=== PATIENT | male | born 1970 | race Caucasian/White ===

== ENCOUNTER 2021-07-10 14:20 | Inpatient (IN) | payer OTHER ==
[~2021-07-10] VITALS: Ht 185.4 cm; Wt 106.8 kg
[2021-07-10] MEDS ORDERED: IV NORMAL SALINE 1,000ML 1,000 ML IV ONE (15:00)
--- NOTE | 2021-07-10 15:06 | PHYS DOC ---
General Adult EDM: Chief Complaint: COUGH HPI: HPI: Patient is a 51-year-old Covid positive male being seen in the ER for cough, nausea/vomiting, fevers that started over the last 4 days. Patient was diagnosed with Covid 10 days ago. He has been taking codeine cough syrup without any improvement in his symptoms. He states that he is tolerating fluids. He states 2 days prior he did have some hemoptysis. He has no medical history. He is tachycardic and borderline hypoxic with O2 saturation of 91% at rest. Patient denies any diarrhea, chest pain. Review of Systems: Review of Systems: 14 body systems of the review of systems have been reviewed. See HPI for pertinent positive and negative responses, otherwise all other systems are negative, nonpertinent or noncontributory Current Medications: Current Meds: Current Medications Medications (Trade) Dose Ordered Sig/Vincent Start Time Stop Time Status Last Admin Dose Admin Dexamethasone Sodium Phosphate (Decadron) 10 mg 1X ONCE 07/10/21 15:30 07/10/21 15:31 Sodium Chloride 1,000 ml @ 1,000 mls/hr 1X ONCE 07/10/21 15:00 07/10/21 15:59 Allergies: Allergies: Allergies Coded Allergies Type Severity Reaction Last Updated Verified No Known Drug Allergies 07/10/21 No Physical Exam: PE: Constitutional: Well developed, well nourished, no acute distress, non-toxic appearance. [] HENT: Normocephalic, atraumatic, bilateral external ears normal, oropharynx moist, no oral exudates, nose normal. [] Eyes: PERRL, EOMI, conjunctiva normal, no discharge. [] Neck: Normal range of motion, no tenderness, supple, no stridor. [] Cardiovascular:Heart rate tachycardic rhythm, no murmur [] Lungs & Thorax: Bilateral breath sounds clear and diminished to auscultation, tachypnea, hypoxia [] Abdomen: Bowel sounds normal, soft, no tenderness, no masses, no pulsatile masses. [] Skin: Warm, dry, no erythema, no rash. [] Back: Normal range of motion Extremities: No tenderness, no cyanosis, no clubbing, ROM intact, no edema. [] Neurologic: Alert and oriented X 3, normal motor function, normal sensory function, no focal deficits noted. [] Psychologic: Affect normal, judgement normal, mood normal. [] Current Patient Data: Labs: Laboratory Tests Test 07/10/21 15:10 White Blood Count 6.2 x10^3/uL Red Blood Count 4.98 x10^6/uL Hemoglobin 15.5 g/dL Hematocrit 45.2 % Mean Corpuscular Volume 91 fL Mean Corpuscular Hemoglobin 31 pg Mean Corpuscular Hemoglobin Concent 34 g/dL Red Cell Distribution Width 14.1 % Platelet Count 158 x10^3/uL Neutrophils (%) (Auto) 85 % Lymphocytes (%) (Auto) 8 % Monocytes (%) (Auto) 7 % Eosinophils (%) (Auto) 0 % Basophils (%) (Auto) 0 % Neutrophils # (Auto) 5.2 x10^3uL Lymphocytes # (Auto) 0.5 x10^3/uL Monocytes # (Auto) 0.4 x10^3/uL Eosinophils # (Auto) 0.0 x10^3/uL Basophils # (Auto) 0.0 x10^3/uL Sodium Level 134 mmol/L Potassium Level 4.2 mmol/L Chloride Level 98 mmol/L Carbon Dioxide Level 26 mmol/L Anion Gap 10 Blood Urea Nitrogen 13 mg/dL Creatinine 1.1 mg/dL Estimated GFR (Cockcroft-Gault) 70.6 BUN/Creatinine Ratio 12 Glucose Level 121 mg/dL Calcium Level 8.1 mg/dL Total Bilirubin 0.4 mg/dL Aspartate Amino Transf (AST/SGOT) 187 U/L Alanine Aminotransferase (ALT/SGPT) 127 U/L Alkaline Phosphatase 75 U/L Troponin I Quantitative < 0.017 ng/mL Total Protein 6.6 g/dL Albumin 3.2 g/dL Albumin/Globulin Ratio 0.9 Current Medications Medications (Trade) Dose Ordered Sig/Vincent Route PRN Reason Start Time Stop Time Status Last Admin Dose Admin Sodium Chloride 1,000 ml @ 1,000 mls/hr 1X ONCE IV 07/10/21 15:00 07/10/21 15:59 DC 07/10/21 15:24 Dexamethasone Sodium Phosphate (Decadron) 10 mg 1X ONCE IVP 07/10/21 15:30 07/10/21 15:31 DC 07/10/21 15:24 Iohexol (Omnipaque 350 Mg/ml) 100 ml 1X ONCE IV 07/10/21 15:15 07/10/21 15:16 DC 07/10/21 15:17 Info (Do NOT chart on this entry -- for MONITORING) 1 each PRN DAILY PRN MC SEE COMMENTS 07/10/21 15:15 07/12/21 15:14 Ceftriaxone Sodium 1 gm/ Sodium Chloride 50 ml @ 100 mls/hr 1X ONCE IV 07/10/21 16:30 07/10/21 16:59 Azithromycin 500 mg/Sodium Chloride 250 ml @ 250 mls/hr 1X ONCE IV 07/10/21 16:30 07/10/21 17:29 EKG: EKG: EKG performed by ER staff at 1526 shows sinus rhythm with a right bundle branch block, no STEMI read by Dr. Claros at 1533 [] Radiology/Procedures: Radiology/Procedures: PROCEDURE: CT ANGIOGRAPHY CHEST Site ID: [id number] EXAMINATION: CTA chest. Technique: Axial images with coronal and sagittal reconstructions with MIP technique are performed of chest with angiogram protocol. 100mls omni 350 administered intravenously. One or more of the following radiation dose reduction techniques was used: automated exposure control, adjustment of mA and/or KV according to patient size, and/or utilization of iterative reconstruction technique. HISTORY: 51 years Male tachycardia, soa, covid COMPARISON: Correlation with chest x-ray from November 03, 2020. FINDINGS: There is good opacification of the pulmonary arteries with no filling defects to suggest pulmonary embolism. Mild the breathing motion artifacts could obscure a subtle abnormality. There is patchy but relatively extensive groundglass the opacities in the lungs worse in the upper and midlung segments compatible with atypical infection, presumably Covid pneumonia based on the history. The heart is a not enlarged. No pericardial or pleural effusion. There is no mediastinal mass or significant lymphadenopathy. No hilar or axillary lymphadenopathy. Sections in the upper abdomen demonstrate evidence of the hepatic steatosis. The osseous structures demonstrate mild degenerative osteophytes in the midthoracic spine. IMPRESSION: 1. No PE or dissection. 2. Extensive groundglass opacities in the lungs compatible with atypical infection, presumably Covid pneumonia based on the history. 3. Hepatic steatosis. Electronically signed by: Consuelo Catherine MD (07/10/2021 3:41 PM) [id number] DICTATED AND SIGNED BY: CONSUELO CATHERINE MD DATE: 07/10/21 1535 CC: NIKIA QUINTANILLA; NIMISHA RIVERA INDEPENDENT SALES REPRESENTATIVE ~MTH0 0[] Heart Score: C/O Chest Pain: No Risk Factors: Risk Factors: DM, Current or recent (<one month) smoker, HTN, HLP, family history of CAD, obesity. Risk Scores: Score 0 - 3: 2.5% MACE over next 6 weeks - Discharge Home Score 4 - 6: 20.3% MACE over next 6 weeks - Admit for Clinical Observation Score 7 - 10: 72.7% MACE over next 6 weeks - Early Invasive Strategies Course & Med Decision Making: Course & Med Decision Making Pertinent Labs and Imaging studies reviewed. (See chart for details) [] Patient is a 51-year-old male being seen in the ER for shortness of breath, nausea/vomiting, fevers that started 4 days ago. Patient was diagnosed with COVID-19 10 days ago. Work-up in the ER consisted of blood work, CT angio to rule out pulmonary embolism due to tachycardia, hemoptysis and borderline hypoxia. Patient treated with IV fluids and steroid. Patient CT scan showed extensive groundglass opacities. He was treated with IV antibiotics. Patient is requiring oxygen at this time. His O2 saturation is 87% on room air. CBC unremarkable. Patient was noted to have elevated liver enzymes consistent with a COVID-19 infection. I discussed patient's case with Dr. Jones who agreed to admit the patient to this facility under his services for COVID-19 pneumonia. I discussed this with patient he is agreeable to plan of care and admission. Care transferred at this time 1637. Lena Disclaimer: Lena Disclaimer: This electronic medical record was generated, in whole or in part, using a voice recognition dictation system. Departure Departure: Impression: Primary Impression: Pneumonia due to COVID-19 virus Additional Impression: Hypoxia Disposition: ADMITTED INPATIENT Admitting Physician: Vladimir Jones Condition: STABLE Referrals: NIKIA QUINTANILLA (PCP) NIMISHA RIVERA APRN Jul 10, 2021 15:06
[2021-07-10] MEDS ORDERED: CONTRAST GIVEN. MC PRN (15:15)
[2021-07-10] MEDS ORDERED: IOHEXOL 350 MG/ML 100 ML VIAL. IV ONE (15:15)
[2021-07-10] MEDS ORDERED: DEXAMETHASONE SOD PHOS 10 MG/ML VIAL. IVP ONE (15:30)
--- NOTE | 2021-07-10 15:33 | EKG ---
[address] [address] Test Date: 2021-07-10 Test Time: 15:26:56 Pat Name: KEYSHA BIGGS Department: Room: Gender: M Nail Kegger: : 1970 Requested By: NIMISHA RIVERA Order Number: [id number] Reading MD: Measurements Intervals Imperial Rate: 110 P: 96 CT: 190 QRS: -59 QRSD: 140 T: -1 QT: 330 QTc: 452 Interpretive Statements SINUS TACHYCARDIA ABNORMAL LEFT AXIS DEVIATION LEFT ANTERIOR FASCICULAR BLOCK RIGHT BUNDLE BRANCH BLOCK BIFASCICULAR BLOCK ABNORMAL ECG RI6.02 No previous ECG available for comparison
[2021-07-10 15:38] LABS: BASO % 0 % (0-3); EOS % 0 % (0-3); HEMATOCRIT 45.2 % (39.0-53.0); HEMOGLOBIN 15.5 g/dL (13.0-17.5); LYMPH # 0.5 x10^3/uL (1.0-4.8); LYMPH % 8 % (24-48); MEAN CORPUSCULAR HEMOGLOBIN 31 pg (25-35); MEAN CORPUSCULAR HGB CONC 34 g/dL (31-37); MEAN CORPUSCULAR VOLUME 91 fL (79-100); MONO # 0.4 x10^3/uL (0.0-1.1); MONO % 7 % (0-9); NEUT # 5.2 x10^3uL (1.8-7.7); NEUT % 85 % (31-73); PLATELET COUNT 158 x10^3/uL (140-400); RED BLOOD COUNT 4.98 x10^6/uL (4.30-5.70); RED CELL DISTRIBUTION WIDTH 14.1 % (11.5-14.5); WHITE BLOOD COUNT 6.2 x10^3/uL (4.0-11.0)
--- NOTE | 2021-07-10 15:43 | RAD ---
Site ID: [id number] EXAMINATION: CTA chest. Technique: Axial images with coronal and sagittal reconstructions with MIP technique are performed of chest with angiogram protocol. 100mls omni 350 administered intravenously. One or more of the following radiation dose reduction techniques was used: automated exposure control , adjustment of mA and/or KV according to patient size, and/or utilization of iterative reconstructio n technique. HISTORY: 51 years Male tachycardia, soa, covid COMPARISON: Correlation with chest x-ray from November 03, 2020. FINDINGS: There is good opacification of the pulmonary arteries with no filling defects to suggest pulmonary em bolism. Mild the breathing motion artifacts could obscure a subtle abnormality. There is patchy but r elatively extensive groundglass the opacities in the lungs worse in the upper and midlung segments co mpatible with atypical infection, presumably Covid pneumonia based on the history. The heart is a not enlarged. No pericardial or pleural effusion. There is no mediastinal mass or significant lymphadenopathy. No hilar or axillary lymphadenopathy. Se ctions in the upper abdomen demonstrate evidence of the hepatic steatosis. The osseous structures demonstrate mild degenerative osteophytes in the midthoracic spine. IMPRESSION: 1. No PE or dissection. 2. Extensive groundglass opacities in the lungs compatible with atypical infection, presumably Covid pneumonia based on the history. 3. Hepatic steatosis. Electronically signed by: Michael Catherine MD (07/10/2021 3:41 PM) [id number]
[2021-07-10 15:45] LABS: CALCIUM 8.1 mg/dL (8.5-10.1); CREATININE 1.1 mg/dL (0.7-1.3); GFR 70.6; POTASSIUM 4.2 mmol/L (3.5-5.1)
[2021-07-10 15:51] LABS: ALBUMIN 3.2 g/dL (3.4-5.0); ALBUMIN/GLOBULIN RATIO 0.9 (1.0-1.7); TOTAL BILIRUBIN 0.4 mg/dL (0.2-1.0); TOTAL PROTEIN 6.6 g/dL (6.4-8.2)
[2021-07-10] MEDS ORDERED: AZITHROMYCIN 500 MG in IV NORMAL SALINE 250ML 250 ML IV ONE (16:30)
[2021-07-10] MEDS ORDERED: AZITHROMYCIN 500 MG VIAL. IV ONE (16:35)
[2021-07-10] MEDS ORDERED: IV NORMAL SALINE 50ML 50 ML ONE ×2 (16:35→16:36)
[2021-07-10] MEDS ORDERED: cefTRIAXone SODIUM 1 GM VIAL ONE (16:35)
[2021-07-10] MEDS ORDERED: ONDANSETRON PF 4 MG/2 ML VIAL. ONE (16:35)
[2021-07-10] MEDS ORDERED: IV NORMAL SALINE 250ML 250 ML ONE (16:35)
[2021-07-10] MEDS ORDERED: ONDANSETRON PF 4 MG/2 ML VIAL. IVP ONE (17:00)
--- NOTE | 2021-07-10 21:30 | NUR ---
The patient, KEYSHA BIGGS, 51 y/o, M admitted by MARIXA PONCE MD, was given written information regarding hospital policies, unit procedures and contact persons. Pt is being admitted for Covid Pnuemonia. Valuables were checked and vitals obtained. Pt is A&OX4 on 3LNC which he does not use at home. He is able to express own concerns. Pt ambulates on own to toilet. Pt is currently resting in bed watching tv. Will continue to monitor.
[2021-07-10 21:45] VITALS: BP 152/87
[2021-07-10] MEDS ORDERED: ACETAMINOPHEN/CODEINE 300/30MG TABLET PO SCH (23:00)
[2021-07-10] MEDS ORDERED: REMDESIVIR LOAD in IV NORMAL SALINE 250ML TV IV ONE (23:00)
[2021-07-10] MEDS ORDERED: ENOXAPARIN 40 MG/0.4 ML SYRINGE. SQ ONE (23:00)
[2021-07-11 06:02] VITALS: BP 133/82
[2021-07-11 06:56] LABS: BASO % 0 % (0-3); EOS % 0 % (0-3); HEMATOCRIT 43.5 % (39.0-53.0); HEMOGLOBIN 14.8 g/dL (13.0-17.5); LYMPH # 0.6 x10^3/uL (1.0-4.8); LYMPH % 9 % (24-48); MEAN CORPUSCULAR HEMOGLOBIN 31 pg (25-35); MEAN CORPUSCULAR HGB CONC 34 g/dL (31-37); MEAN CORPUSCULAR VOLUME 91 fL (79-100); MONO # 0.5 x10^3/uL (0.0-1.1); MONO % 8 % (0-9); NEUT # 5.1 x10^3uL (1.8-7.7); NEUT % 83 % (31-73); PLATELET COUNT 170 x10^3/uL (140-400); RED BLOOD COUNT 4.76 x10^6/uL (4.30-5.70); RED CELL DISTRIBUTION WIDTH 14.1 % (11.5-14.5); WHITE BLOOD COUNT 6.2 x10^3/uL (4.0-11.0)
[2021-07-11 06:57] LABS: ALBUMIN 2.8 g/dL (3.4-5.0); ALBUMIN/GLOBULIN RATIO 0.7 (1.0-1.7); CALCIUM 8.1 mg/dL (8.5-10.1); CREATININE 0.9 mg/dL (0.7-1.3); POTASSIUM 4.2 mmol/L (3.5-5.1); TOTAL BILIRUBIN 0.3 mg/dL (0.2-1.0); TOTAL PROTEIN 6.6 g/dL (6.4-8.2)
[2021-07-11] MEDS: DEXAMETHASONE SOD PHOS 10 MG/ML VIAL. IVP SCH (09:14)
[2021-07-11 10:51] VITALS: BP 143/92
--- NOTE | 2021-07-11 15:10 | HP ---
ADMIT DATE: 07/11/2021 HISTORY OF PRESENT ILLNESS: The patient is a 51-year-old male patient who started having symptoms on 07/01. On 07/03, he went and got tested for coronavirus that came positive on 07/05. On 07/07, he woke up early in the morning with recurrent bouts of cough that are distressing associated with dry heaving and since then his symptoms continued to worsen. Two days prior to, he did have some hemoptysis, has no medical history and his oxygen saturation was borderline at 91% on room air. He denied any other symptoms. He was extensively evaluated in the Emergency Room and his lab work and imaging studies. His lab work showed slightly deranged liver enzymes; however, total bilirubin and alkaline phosphatase were normal. His white cell count and platelets are all within normal range. His CT angio of the chest showed the patient has no pulmonary embolism or dissection; however, extensive ground glass opacities in the lungs, compatible with atypical infection, presumably COVID pneumonia based on the history. He has also hepatic steatosis. The patient was admitted with COVID-19 pneumonia and acute hypoxic respiratory failure requiring 2 liters of oxygen by nasal cannula to maintain his oxygen saturation more than 92%. PAST MEDICAL HISTORY: Significant for osteoarthritis, right hip joint. PAST SURGICAL HISTORY: Left foot surgery for ruptured tendon Achilles. ALLERGIES: He has no known drug allergies. MEDICATIONS: He is currently on fish oil and multivitamins. FAMILY HISTORY: He has one brother and one sister older and one sister younger and all healthy. His father at the age of 90 and his mother about 30 years ago because of lung cancer. SOCIAL HISTORY: He is , has 4 sons and 1 foster daughter. He never smoked. Drinks alcohol occasionally. Does not use any drugs. He is currently in the [employer]. REVIEW OF SYSTEMS: As per history of present illness. PHYSICAL EXAMINATION: GENERAL: On arrival to the emergency room, the patient was tachypneic, hypoxic and tachycardic. There was no pallor, jaundice, cyanosis, no lymphadenopathy, no thyromegaly, no jugular venous distention. No limb edema. VITAL SIGNS: His heart rate was 116, blood pressure is 133/85, temperature was 99.5, respiratory rate was 36 and his oxygen saturation was 88% on room air, that has improved to 94% on 2 liters of oxygen. HEAD, EYES, EARS, NOSE, AND THROAT: Normocephalic, atraumatic. NECK: Supple. HEART: Showed normal first and second heart sounds, no gallop or murmur. CHEST: Shows central trachea, equal bilateral expansion, air entry sounds with bilateral basal crepitation posteriorly at the bases. No rhonchi. ABDOMEN: Distended, soft, nontender. NEUROLOGIC: He was grossly intact. LABORATORY DATA: Showed a white cell count of 6200, hemoglobin 15.5, hematocrit 45, MCV was 91, and platelet count of 158,000 with a manual differential showed 85% polymorphs, 8% lymphocytes and 7% monocytes. Serum sodium was 134, potassium 4.2, chloride 98, bicarbonate 26, anion gap of 10, BUN 13, creatinine 1.1. Estimated GFR was 70 mL per minute. His glucose was 121, calcium was 8.1, total bilirubin and alkaline phosphatase are normal. AST, ALT are elevated. His total protein 6.6, albumin 3.2. He has 2 sets of cardiac enzymes that were normal. CT angio showed that there is no pulmonary embolism, aortic dissection, extensive ground glass opacities in the lungs, compatible with atypical infection, presumably because of pneumonia and hepatic steatosis. ASSESSMENT AND PLAN: The patient was started on IV antibiotic in the form of Zithromax and ceftriaxone. He was given 10 mg of dexamethasone and started on Lovenox as well as remdesivir together with Tylenol 3 as a cough suppressant. JONES DR: Angelic TID: [id number]
[2021-07-11] MEDS: ACETAMINOPHEN/CODEINE 300/30MG TABLET PO PRN (15:45)
[2021-07-11 15:46] VITALS: BP 148/88
--- NOTE | 2021-07-11 16:02 | NUR ---
SHIFT NOTE PT resting comfortably throughout shift. Complaints of increased cough this AM. Tylenol w/ codeine increased, SEE EMAR. Pt titrated from 3L to 6L via nasal cannula. IV abx continued. Will continue to monitor. JUAN MIGUEL, RN
[2021-07-11] MEDS: AZITHROMYCIN 250 MG in IV NORMAL SALINE 250ML 250 ML IV SCH (16:19)
[2021-07-11 19:30] VITALS: BP 145/79
[2021-07-11] MEDS ORDERED: ACETAMINOPHEN/CODEINE 300/30MG TABLET PO SCH (21:00)
[2021-07-11] MEDS ORDERED: ENOXAPARIN 40 MG/0.4 ML SYRINGE. SQ SCH (21:00)
[2021-07-11] MEDS: LACTOBACILLUS RHAMNOSUS GG 1 CAPSULE. PO SCH (21:48)
[2021-07-11 23:00] VITALS: BP 145/87
[2021-07-11] MEDS ORDERED: REMDESIVIR 100mg in NORMAL SALINE 250ML X 4 DAYS IV SCH (23:00)
[2021-07-12 04:17] VITALS: BP 139/90
--- NOTE | 2021-07-12 04:26 | NUR ---
Nursing note: Pt had 14 beat run of VT at 0414; VSS. Pt reported feeling chest tightness and coughing during this episode. Dr. Jones called, orders for a magnesium lab this AM placed; Consult cardiology if it occurs again.
[2021-07-12] MEDS: LACTOBACILLUS RHAMNOSUS GG 1 CAPSULE. PO SCH (08:08)
[2021-07-12] MEDS: DEXAMETHASONE SOD PHOS 10 MG/ML VIAL. IVP SCH (08:09)
[2021-07-12 09:14] LABS: BASO % 0 % (0-3); EOS % 0 % (0-3); HEMATOCRIT 44.6 % (39.0-53.0); HEMOGLOBIN 14.8 g/dL (13.0-17.5); LYMPH # 0.9 x10^3/uL (1.0-4.8); LYMPH % 7 % (24-48); MEAN CORPUSCULAR HEMOGLOBIN 31 pg (25-35); MEAN CORPUSCULAR HGB CONC 33 g/dL (31-37); MEAN CORPUSCULAR VOLUME 93 fL (79-100); MONO # 0.8 x10^3/uL (0.0-1.1); MONO % 7 % (0-9); NEUT % 86 % (31-73); PLATELET COUNT 235 x10^3/uL (140-400); RED CELL DISTRIBUTION WIDTH 14.3 % (11.5-14.5); WHITE BLOOD COUNT 12.8 x10^3/uL (4.0-11.0)
--- NOTE | 2021-07-12 09:28 | NUR ---
NURSING NOTE POSITIVE SEPSIS PT LABS RESULTED BACK THIS AM WITH ELEVATED WBC COUNT AND NOW TRIGGERING POSITIVE SEPSIS SCREEN WITH INCREASED OXYGEN DEMAND, TACHYPNEA. DR PONCE NOTIFIED. ORDER FOR LACTIC ACID AND BLOOD CULTURES ENTERED. PT ON ANTIBIOTICS CURRENTLY. BLOOD PRESSURE STABLE. NO FLUIDS NEEDED AT THIS TIME PER DR PONCE. DAYO RODARTE.
[2021-07-12 10:13] LABS: ALBUMIN 2.7 g/dL (3.4-5.0); ALBUMIN/GLOBULIN RATIO 0.7 (1.0-1.7); CALCIUM 8.3 mg/dL (8.5-10.1); CREATININE 0.8 mg/dL (0.7-1.3); GFR 101.9; POTASSIUM 4.3 mmol/L (3.5-5.1); TOTAL BILIRUBIN 0.3 mg/dL (0.2-1.0); TOTAL PROTEIN 6.6 g/dL (6.4-8.2)
[2021-07-12] MEDS ORDERED: IPRATRPIUM/ALBUTEROL 0.5/2.5MG 3 ML NEBU. NEB SCH (12:00)
--- NOTE | 2021-07-12 14:33 | NUR ---
NURSING NOTE PT WAS IN BED THIS AM UPON ASSESSMENT AND MEDICATION ADMINISTRATION. PT IS A&O. PT DENIES PAIN. PT HAS PERSISTENT DRY COUGH, SOA DURING AMBULATION, BUT STATES WHEN SITTING AND RESTING HE FEELS OKAY. PT STATES HE HAD AN EPISODE THIS MORNING WHERE HE ROLLED ONTO HIS SIDE, BEGAN COUGHING AND COULD NOT CATCH HIS BREATH, STATES HE STARTED HAVING CHEST TIGHTNESS AT THAT TIME, FELT ANXIOUS D/T NOT BEING ABLE TO CATCH HIS BREATH. PT IS ON EARLY CHILDHOOD ASSISTANT AND DR PONCE WAS NOTIFIED OF CARDIAC EVENTS THAT HAPPENED DURING PREVIOUS SHIFT. PT GIVEN IS FOR LUNG EXERCISING. PT PLACED ON HUMIDIFIER AND HIGH FLOW OXYGEN TUBING CURRENTLY AT 7L. PT HAS ORDERS FOR RT TO ROUND ON PT FOR BREATHING TREATMENTS. PT REMAINS ABOUT 90-91% ON 7L HIGH FLOW WHEN RESTING IN THE BED. PT STATES WHEN HE GETS UP TO THE RESTROOM HIS WORK OF BREATHING INCREASES AND HE FEELS SHORT OF AIR. PT HAS CRACKLES IN BILATERAL BASES. DURING ROUNDING WITH DR PONCE, DR PONCE SUGGESTED TO PT THAT HE BE TRANSFERRED TO [facility] WITH HIGHER LEVEL OF CARE AND PULMONOLOGY AVAILABILITY FOR PT SAFETY D/T INCREASING OXYGEN DEMAND. NURSING FURNITURE SERVICER, YENNI RN, NOTIFIED TO INITIATE TRANSFER. WILL CONTINUE TO MONITOR. DAYO RODARTE.
[2021-07-12 14:44] VITALS: BP 139/83
[2021-07-12] MEDS: ACETAMINOPHEN/CODEINE 300/30MG TABLET PO PRN (15:09)
[2021-07-12] MEDS: AZITHROMYCIN 250 MG in IV NORMAL SALINE 250ML 250 ML IV SCH (15:41)
[2021-07-12 18:55] VITALS: BP 142/73
--- NOTE | 2021-07-12 19:35 | PN ---
DATE: 07/12/2021 SUBJECTIVE: The patient is resting, slightly propped up in bed, in no apparent distress. His oxygen requirement has steadily risen from 2-7 liters per minute, maintaining his oxygen saturation around 91-92%. He continued to desaturate with minimal exertion. Has severe episodes of dry hacking cough and is also extremely short of breath, huffing and puffing, although he managed to sleep last night and was given Tylenol No. 3 as a cough suppressant. PHYSICAL EXAMINATION: GENERAL: When I examined him today, he was resting slightly propped up in bed, in no apparent distress. There was no pallor, jaundice, cyanosis, or thyromegaly. No jugular venous distention. No lower limb edema. VITAL SIGNS: His heart rate was 84, blood pressure was 139/90, temperature was 98, respiratory rate was 22, and oxygen saturation was 72% on 7 liters of oxygen. HEAD, EYES, EARS, NOSE, AND THROAT: Normocephalic, atraumatic. NECK: Supple. HEART: Normal first and second heart sounds, no gallop or murmur. CHEST: Shows central trachea, equal bilateral expansion, air entry, vesicular breath sounds with bilateral diffuse crepitation on both sides posteriorly. I could not really appreciate any rhonchi. ABDOMEN: Distended, soft, nontender. NEUROLOGIC: He was grossly intact. His intake was 2015, no output was recorded. LABORATORY DATA: His lab work this morning showed white cell count of 12,800, hemoglobin was 14.8, hematocrit 44, MCV 93, and platelet count of 235,000. Serum sodium 139, potassium 4.3, chloride 104, bicarbonate 24, anion gap of 11, BUN 17, creatinine 0.8. Estimated GFR was 111, glucose 132. Lactic acid is 1.8, calcium was 8.3, magnesium 2.5. Total bilirubin and alkaline phosphatase are normal. AST and ALT are elevated, but trending down. His C-reactive protein was 125.6 mg per liter. Total protein 6.6, albumin was 2.7. ASSESSMENT: 1. COVID-19 pneumonia. 2. Possible superimposed community-acquired pneumonia. 3. Acute hypoxic respiratory failure with worsening oxygen requirement. He is now on 7 liters. 4. The patient has multiple episodes of nonsustained ventricular tachycardia and also some episodes of high-grade heart block. PLAN: To continue with all his current medication including IV antibiotic as well as remdesivir and Lovenox. As his condition is worsening, I have spoken with the nursing porcelain enameling supervisor at [facility]. The plan is to transfer him there if bed becomes available, preferably tonight. MONIKA DR: Angelic TID: [id number]
--- NOTE | 2021-07-12 19:50 | NUR ---
EMS here to transport pt to [facility] 6th floor. Report was called by day shift and all questions were answered. VSS, pt on 7L high flow NC with O2sat 89-93%. DC/transfer paper work packet given to EMS. [facility] called for update and made aware that pt has left this facility. EMS took pt off unit via gurney with 2 bags of belongings.
[2021-07-12] MEDS ORDERED: ALBUTEROL SULFATE 8GM INHALER. INH SCH (21:00)
--- NOTE | 2021-07-13 09:45 | PN ---
DATE: 07/11/2021 SUBJECTIVE: The patient is resting, slightly propped up in bed, continued to have recurrent bouts of dry distressing cough. Denied any chest pain. Denied any fever. The cough is mostly dry and nonproductive. PHYSICAL EXAMINATION: GENERAL: When I examined him this afternoon, he looked well and was clearly in no apparent respiratory distress. No pallor, jaundice, cyanosis or thyromegaly. No jugular venous distention. No limb edema. VITAL SIGNS: His heart rate was 100, blood pressure was 143/92, temperature was 97.4, respiratory rate was 18 and oxygen saturation was 93% on 4 liters of oxygen. HEAD, EYES, EARS, NOSE AND THROAT: Normocephalic, atraumatic. NECK: Supple. HEART: Showed normal first and second heart sounds, no gallop or murmur. CHEST: Shows central trachea, equal bilateral expansion, air entry vesicular breath sounds with crepitation mostly posteriorly and bilaterally. I could not appreciate any rhonchi. ABDOMEN: Distended, soft, nontender. NEUROLOGIC: Grossly intact. LABORATORY DATA: Showed a serum sodium 136, potassium 4.2, chloride 102, bicarbonate 25, anion gap of 9, BUN 11, creatinine 0.9. Estimated GFR was 89 mL per minute. His glucose was 154, calcium was 8.1, total bilirubin and alkaline phosphatase are normal. AST and ALT are slightly elevated. His total protein 6.6, albumin 2.8. White cell count was 6200, hemoglobin 14.8, hematocrit 43, MCV 91 and platelet count of 170,000 with normal manual differential. ASSESSMENT: 1. COVID-19 pneumonia. 2. Acute hypoxic respiratory failure. 3. Primary osteoarthritis of the right hip joint. DICTATION ENDS HERE JANE/LORNA/BASILIO DR: Angelic TID: [id number]
== END 2021-07-12 19:55 | disposition short-term general hospital (02) | DRG 177 ==
LOC: ER 14:20 → 1 SOUTH 16:53
PROVIDERS: ADMIT Internal Medicine; ATTEND Internal Medicine
PROC: 5A0935A Assistance with Respiratory Ventilation, Less than 24 Consecutive Hours, High Flow/Velocity Cannula (ICD-10-PCS; principal; 2021-07-11)
PROC: XW033E5 Introduction of Remdesivir Anti-infective into Peripheral Vein, Percutaneous Approach, New Technology Group 5 (ICD-10-PCS; 2021-07-11)
PROC: 5A0935A Assistance with Respiratory Ventilation, Less than 24 Consecutive Hours, High Flow/Velocity Cannula (ICD-10-PCS; 2021-07-12)
DX: U07.1 COVID-19 (principal); J12.82 Pneumonia due to coronavirus disease 2019; J96.01 Acute respiratory failure with hypoxia; I47.2 Ventricular tachycardia; I45.9 Conduction disorder, unspecified; K76.0 Fatty (change of) liver, not elsewhere classified; M16.11 Unilateral primary osteoarthritis, right hip; Z80.1 Family history of malignant neoplasm of trachea, bronchus and lung; Z79.899 Other long term (current) drug therapy
CPT/HCPCS: 36415; 71275; 80053; 83605; 83735; 84484; 85025; 85379; 86140; 87040; 93005; 94760; 96361; 96374; J0456; J0696; J1100; J1650; J2405; J7050; Q9967; 99285-25; J7030